=== PATIENT | male | born 2000 | race Two or more races ===

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

== ENCOUNTER 2023-05-29 16:37 | Emergency (ER) | payer OTHER ==
[~2023-05-29] VITALS: Ht 177.8 cm; Wt 59.0 kg
[2023-05-29] MEDS ORDERED: BUPROPION XL150 MG PO (16:59)
== END 2023-05-29 18:58 | disposition home or self-care (01) ==
LOC: ER 16:37
DX: S90.852A Superficial foreign body, left foot, initial encounter (principal); X58.XXXA Exposure to other specified factors, initial encounter; Y93.9 Activity, unspecified; Y92.9 Unspecified place or not applicable; Y99.9 Unspecified external cause status

== ENCOUNTER → 2023-06-25 | Emergency (ER) | payer OTHER ==
[~2023-06-25] VITALS: Ht 177.8 cm; Wt 60.3 kg
[~2023-06-25] MED LIST changes: +BUPROPION XL150 MG PO; +DUOFILM9.8 ML TOP
== END | disposition home or self-care (01) ==
LOC: ER 13:28
DX: B07.0 Plantar wart (principal)

== ENCOUNTER 2023-09-12 17:47 | Emergency (ER) | payer OTHER ==
[~2023-09-12] VITALS: Ht 177.8 cm; Wt 61.7 kg
[2023-09-12] MEDS ORDERED: FAMOTIDINE/PF 20 MG/2 ML VIAL IV PUSH ONE (18:45)
[2023-09-12] MEDS ORDERED: 0.9 % SODIUM CHLORIDE 500 ML IV SCH (18:45)
[2023-09-12] MEDS ORDERED: ONDANSETRON HCL 2 MG/ML VIAL IV ONE (18:45)
[2023-09-12 19:05] LABS: HEMATOCRIT 38.6 % (39.0-48.0); MEAN CELL VOLUME 81.3 fL (80.0-100.00); MEAN CORPUSCULAR HEMOGLOBIN 27.4 pg (27.00-32.0); MEAN CORPUSCULAR HGB CONC 33.8 g/dl (32.0-36.0); PLATELET COUNT 165 K/uL (150-450); RED BLOOD COUNT 4.75 M/uL (4.00-6.00); RED CELL DISTRIBUTION WIDTH 14.4 % (11.5-14.5)
[2023-09-12 19:26] LABS: CALCIUM 9.1 mg/dL (8.5-10.1); CREATININE SERUM 1.06 mg/dL (0.70-1.30); GFR 88.19; POTASSIUM 3.24 mEq/L (3.5-5.1)
[2023-09-12] MEDS ORDERED: KETOROLAC TROMETHAMINE 30 MG VIAL IV ONE (21:45)
[2023-09-12] MEDS ORDERED: HYOSCYAMINE SULFATE 0.125 MG TAB.SUBL SL ONE (21:45)
== END 2023-09-13 01:30 | disposition home or self-care (01) ==
LOC: ER 17:48
PROVIDERS: Emergency Medicine
DX: K29.70 Gastritis, unspecified, without bleeding (principal); F98.8 Other specified behavioral and emotional disorders with onset usually occurring in childhood and adolescence

== ENCOUNTER 2024-03-09 16:11 | Emergency (ER) | payer OTHER ==
[~2024-03-09] VITALS: Ht 177.8 cm; Wt 60.3 kg
[2024-03-09] MEDS ORDERED: KETOROLAC TROMETHAMINE 30 MG VIAL ONE (21:24)
[2024-03-09] MEDS ORDERED: LIDOCAINE HCL 1% 10ML VIAL ONE (21:26)
[2024-03-09] MEDS ORDERED: KETOROLAC TROMETHAMINE 30 MG VIAL IM ONE (21:30)
[2024-03-09] MEDS ORDERED: CEFTRIAXONE SODIUM 1,000 MG VIAL IM ONE (21:30)
[2024-03-09 22:12] LABS: HEMATOCRIT 38.5 % (39.0-48.0); MEAN CELL VOLUME 81.7 fL (80.0-100.00); MEAN CORPUSCULAR HEMOGLOBIN 27.6 pg (27.00-32.0); MEAN CORPUSCULAR HGB CONC 33.8 g/dl (32.0-36.0); PLATELET COUNT 141 K/uL (150-450); RED BLOOD COUNT 4.71 M/uL (4.00-6.00); RED CELL DISTRIBUTION WIDTH 14.5 % (11.5-14.5)
== END 2024-03-09 22:43 | disposition home or self-care (01) ==
LOC: ER 16:13
PROVIDERS: Preventive Medicine Public Health & General Preventive Medicine
DX: A49.9 Bacterial infection, unspecified (principal); R51.9 Headache, unspecified

== ENCOUNTER 2024-03-11 12:04 | Emergency (ER) | payer OTHER ==
[~2024-03-11] VITALS: Ht 177.8 cm; Wt 61.2 kg
[2024-03-11 13:13] VITALS: BP 108/67; O2SAT 100
[2024-03-11] MEDS ORDERED: ONDANSETRON HCL 2 MG/ML VIAL IM STA (14:02)
[2024-03-11] MEDS ORDERED: ONDANSETRON HCL 2 MG/ML VIAL ONE (14:11)
[2024-03-11 14:41] LABS: HEMATOCRIT 40.6 % (39.0-48.0); HEMOGLOBIN 13.7 g/dL (13-16.00); MEAN CELL VOLUME 81.3 fL (80.0-100.00); MEAN CORPUSCULAR HEMOGLOBIN 27.3 pg (27.00-32.0); MEAN CORPUSCULAR HGB CONC 33.6 g/dl (32.0-36.0)
[2024-03-11 14:43] LABS: CALCIUM 8.9 mg/dL (8.5-10.1); CREATININE SERUM 0.93 mg/dL (0.70-1.30); GFR 101.6; POTASSIUM 3.31 mEq/L (3.5-5.1)
[2024-03-11 15:21] LABS: PH,URINE 5.5 (5.0-8.0); URINE APPEARANCE Clear; URINE BILIRRUBIN Negative (NEGATIVE); URINE BLOOD Negative; URINE COLOR Dark Yellow; URINE GLUCOSE Negative (NEGATIVE); URINE KETONE Negative (NEGATIVE); URINE LEUKOCYTE Negative; URINE NITRATE Negative; URINE PROTEIN 30 (NEGATIVE)
[2024-03-11 15:25] LABS: URINE BACTERIA 11.3 uL (0.0-1933); URINE CAST 1.06 uL (0.0-1.40); URINE EPITHELIAL CELLS 10.3 uL (0.0-38.8); URINE WBC 10.3 uL (0.0-23.2)
[2024-03-11 16:03] LABS: PLATELET COUNT 105 K/uL (150-450)
== END 2024-03-11 16:52 | disposition home or self-care (01) ==
LOC: ER 12:06
PROVIDERS: General Practice
DX: A90 Dengue fever [classical dengue] (principal); Z20.822 Contact with and (suspected) exposure to COVID-19

== ENCOUNTER 2024-03-13 14:46 | Outpatient (CLI) | payer OTHER ==
[2024-03-13 15:24] LABS: HEMATOCRIT 40.1 % (39.0-48.0); HEMOGLOBIN 13.2 g/dL (13-16.00); MEAN CELL VOLUME 81.4 fL (80.0-100.00); MEAN CORPUSCULAR HEMOGLOBIN 26.9 pg (27.00-32.0); RED BLOOD COUNT 4.92 M/uL (4.00-6.00); RED CELL DISTRIBUTION WIDTH 13.6 % (11.5-14.5)
[2024-03-13 16:06] LABS: PLATELET COUNT 86 K/uL (150-450)
== END 2024-03-13 14:47 | disposition home or self-care (01) ==
LOC: LAB 14:46
DX: R50.9 Fever, unspecified (principal)